=== PATIENT | male | born 1940 | race Caucasian/White ===

== ENCOUNTER 2019-04-07 07:41 | Day surgery (SDC) | payer OTHER, MEDICARE ==
[2019-04-06 15:43] VITALS: BMI 33.0
[2019-04-07 08:28] LABS: #Basophils 0.1 thou/uL (0.0-0.2); #Eosinphils 0.2 thou/uL (0.0-0.7); #Lymphocytes 1.9 thou/uL (1.20-3.40); #Monocytes 0.6 thou/uL (0.11-0.59); #Neutrophils 3.8 thou/uL (1.40-6.50); %Basophils 1.1 % (0.0-1.0); %Eosinophils 2.9 % (0.0-10.0); %Lymphocytes 28.4 % (21.0-51.0); %Monocytes 9.3 % (0.0-10.0); %Neutrophils 58.2 % (42.0-75.0); Hemoglobin 15.8 g/dL (14.0-18.0); Mean Corpuscular HGB CONC 32.9 g/dL (32.0-36.0); Mean Corpuscular Hemoglobin 31.7 pg (27.0-31.0); Mean Corpuscular Volume 96.2 fL (78.0-98.0); Mean Platelet Volume 8.7 fL (7.4-10.4); Platelet Count 259 thou/uL (130-400); RBC Distribution Width 12.3 % (11.5-14.5); White Blood Cell (WBC) Count 6.5 thou/uL (4.8-10.8)
[2019-04-07 08:34] LABS: INR-International Normal Ratio 1.1; PTT 31.6 SEC (22.9-36.1); Prothrombin Time 13.8 SEC (12.0-14.7)
[2019-04-07 08:54] LABS: Cardiac Risk 3.9 (Less than 4.5)
[2019-04-07] MEDS ORDERED: Lidocaine 1% (PF) 30 ML VIAL ONE (09:43)
[2019-04-07] MEDS ORDERED: Verapamil 5 MG/2 ML VIAL ONE (09:56)
[2019-04-07] MEDS ORDERED: Nitroglycerin 100MG/250ML BOT 250 ML ONE (09:56)
[2019-04-07] MEDS ORDERED: Heparin 10,000 UNITS/1 ML VIAL ONE (09:58)
[2019-04-07] MEDS ORDERED: Midazolam HCl 2 mg/2 ml Vial ONE (09:58)
[2019-04-07] MEDS ORDERED: Fentanyl 100 MCG/2 ML VIAL ONE (09:58)
[2019-04-07] MEDS ORDERED: Iopamidol 370 76% 50 ML VIAL FS ONE (15:47)
[2019-04-07] MEDS ORDERED: Iopamidol 370 76% 100 ML VIAL ONE (15:47)
== END 2019-04-07 14:31 ==
LOC: CCL 07:41
PROVIDERS: ATTEND Internal Medicine Cardiovascular Disease
PROC: 4A023N7 Measurement of Cardiac Sampling and Pressure, Left Heart, Percutaneous Approach (ICD-10-PCS; principal; 2019-04-07)
PROC: B2111ZZ Fluoroscopy of Multiple Coronary Arteries using Low Osmolar Contrast (ICD-10-PCS; principal; 2019-04-07)
PROC: B3101ZZ Fluoroscopy of Thoracic Aorta using Low Osmolar Contrast (ICD-10-PCS; principal; 2019-04-07)
DX: I25.10 Atherosclerotic heart disease of native coronary artery without angina pectoris (principal); I77.810 Thoracic aortic ectasia; I35.1 Nonrheumatic aortic (valve) insufficiency; E78.00 Pure hypercholesterolemia, unspecified; I10 Essential (primary) hypertension; E11.9 Type 2 diabetes mellitus without complications; E78.5 Hyperlipidemia, unspecified; Z87.891 Personal history of nicotine dependence; Z79.82 Long term (current) use of aspirin; Z79.899 Other long term (current) drug therapy; Z79.84 Long term (current) use of oral hypoglycemic drugs
CPT/HCPCS: 36415; 80061; 85025; 85610; 85730; 93458; 93567; 99152; 99153; C1769; J1644; J2001; J2250; J3010; Q9967

== ENCOUNTER 2021-06-06 10:26 | Outpatient (CLI) | payer MEDICARE ==
[2021-06-06] MEDS ORDERED: Iopamidol 370 76% 100 ML VIAL ONE (11:23)
== END 2021-06-06 10:27 | disposition home or self-care (01) ==
LOC: CT 10:26
PROVIDERS: ATTEND Family Medicine
DX: D36.9 Benign neoplasm, unspecified site (principal); K86.89 Other specified diseases of pancreas; K86.2 Cyst of pancreas; R10.9 Unspecified abdominal pain; I77.810 Thoracic aortic ectasia; I25.10 Atherosclerotic heart disease of native coronary artery without angina pectoris; K21.9 Gastro-esophageal reflux disease without esophagitis; L03.031 Cellulitis of right toe; I73.9 Peripheral vascular disease, unspecified
CPT/HCPCS: 74170; 82565; 99214; G0463; Q9967

== ENCOUNTER 2023-06-09 13:09 | Outpatient (CLI) | payer MEDICARE | END 2023-06-09 13:10 | disposition home or self-care (01) | LOC: MRI 13:09 | PROVIDERS: ATTEND Nurse Practitioner Family | DX: G95.20 Unspecified cord compression (principal); R42 Dizziness and giddiness; M47.812 Spondylosis without myelopathy or radiculopathy, cervical region; M48.02 Spinal stenosis, cervical region; G93.9 Disorder of brain, unspecified | CPT/HCPCS: 70551; 72141 ==

== ENCOUNTER 2024-03-23 13:36 | Outpatient (CLI) | payer MEDICARE | END 2024-03-23 13:37 | disposition home or self-care (01) | LOC: RAD 13:36 | PROVIDERS: ATTEND Internal Medicine Critical Care Medicine | DX: R06.00 Dyspnea, unspecified (principal); I51.7 Cardiomegaly | CPT/HCPCS: 71046 ==

== ENCOUNTER 2025-06-08 18:18 | Inpatient (IN) | payer MEDICARE ==
[2025-06-08] MEDS ORDERED: hydrALAZINE 20 MG/ML VIAL SLOW IVP PRN (19:15)
[2025-06-08 19:25] LABS: #Basophils 0.09 10x3/uL (0.0-0.2); #Eosinophils 0.15 10x3/uL (0.0-0.7); #Monocytes 0.66 10x3/uL (0.11-0.59); #Neutrophils 4.55 10x3/uL (1.40-6.50); %Basophils 1.3 % (0.0-1.0); %Eosinophils 2.1 % (0.0-10.0); %Lymphocytes 22.1 % (21.0-51.0); %Monocytes 9.4 % (0.0-10.0); %Neutrophils 64.5 % (42.0-75.0); Hematocrit 44.7 % (42.0-52.0); Hemoglobin 15.0 g/dL (14.0-18.0); Mean Corpuscular Hemoglobin 31.9 pg (27.0-31.0); Mean Corpuscular Volume 95.1 fL (78.0-98.0); Platelet Count 227 10x3/uL (130-400); Red Blood Cell (RBC) Count 4.70 mill/uL (4.70-6.10); White Blood Cell (WBC) Count 7.05 10x3/uL (4.8-10.8)
[2025-06-08 19:33] LABS: ALT (SGPT) 22 U/L (Less than 45); AST (SGOT) 32 U/L (11-34); Albumin 3.7 g/dL (3.1-4.5); Alkaline Phosphatase 95 U/L (40-110); Anion Gap 15 mmol/L (10-20); BUN (Urea Nitrogen) 16 mg/dL (8.4-25.7); Bilirubin, Total 1.2 mg/dL (0.3-1.2); Calc. Creatinine Clearance 0 mL/min (70-130); Calcium 9.5 mg/dL (7.8-10.44); Carbon Dioxide 26 mmol/L (23-31); Chloride 106 mmol/L (98-107); Globulin 3.2 g/dL (2.4-3.5); Glucose 118 mg/dL (83-110); Potassium 3.3 mmol/L (3.5-5.1); Sodium 144 mmol/L (136-145)
[2025-06-08] MEDS ORDERED: Bacitracin 1 PK ONE (19:36)
[2025-06-08] MEDS ORDERED: Ondansetron PF 4 MG/2 ML Vial IVP PRN (19:40)
[2025-06-08] MEDS ORDERED: Dextrose 50% Abboject 50 ML SYRINGE SLOW IVP PRN (19:40)
[2025-06-08] MEDS ORDERED: Glucagon 1 MG/ML KIT IM PRN (19:40)
[2025-06-08 20:13] LABS: INR-International Normal Ratio 2.4; Prothrombin Time 26.6 sec (12.0-14.7)
[2025-06-08 20:14] LABS: PTT 43.0 sec (22.9-36.1)
[2025-06-08 23:34] VITALS: BMI 29.0
[2025-06-09] MEDS: Acetaminophen 325 MG TAB PO PRN (00:05)
[2025-06-09 03:47] LABS: #Basophils 0.10 10x3/uL (0.0-0.2); #Eosinophils 0.09 10x3/uL (0.0-0.7); #Monocytes 0.71 10x3/uL (0.11-0.59); #Neutrophils 4.98 10x3/uL (1.40-6.50); %Basophils 1.3 % (0.0-1.0); %Eosinophils 1.2 % (0.0-10.0); %Lymphocytes 22.4 % (21.0-51.0); %Monocytes 9.3 % (0.0-10.0); %Neutrophils 65.3 % (42.0-75.0); Hematocrit 43.5 % (42.0-52.0); Hemoglobin 14.3 g/dL (14.0-18.0); Mean Corpuscular Hemoglobin 31.8 pg (27.0-31.0); Mean Corpuscular Volume 96.9 fL (78.0-98.0); Platelet Count 210 10x3/uL (130-400); Red Blood Cell (RBC) Count 4.49 mill/uL (4.70-6.10); White Blood Cell (WBC) Count 7.63 10x3/uL (4.8-10.8)
[2025-06-09 04:01] LABS: Anion Gap 11 mmol/L (10-20); BUN (Urea Nitrogen) 18 mg/dL (8.4-25.7); Calc. Creatinine Clearance 67 mL/min (70-130); Calcium 9.1 mg/dL (7.8-10.44); Carbon Dioxide 26 mmol/L (23-31); Chloride 108 mmol/L (98-107); Glucose 139 mg/dL (83-110); Potassium 3.2 mmol/L (3.5-5.1); Sodium 142 mmol/L (136-145)
[2025-06-09] MEDS ORDERED: Electrolyte Replacement Protocol 1 EACH FS PRN (04:56)
[2025-06-09] MEDS: Potassium Chloride 20 MEQ in Premix 1 BAG IVPB SCH (06:13)
[2025-06-09 09:09] LABS: INR-International Normal Ratio 1.9; Prothrombin Time 21.9 sec (12.0-14.7)
[2025-06-09 09:10] LABS: PTT 45.7 sec (22.9-36.1)
[2025-06-09] MEDS ORDERED: Iopamidol-370 76% 500 ML MDV (1 ML CHARGE) ONE (12:12)
[2025-06-09] MEDS: Pantoprazole 40 MG VIAL IVP SCH (13:19)
[2025-06-09] MEDS: Scopolamine 1 mg/72 hour Patch TOP SCH (22:50)
[2025-06-10 05:16] LABS: #Basophils 0.08 10x3/uL (0.0-0.2); #Eosinophils 0.12 10x3/uL (0.0-0.7); #Monocytes 0.67 10x3/uL (0.11-0.59); #Neutrophils 4.39 10x3/uL (1.40-6.50); %Basophils 1.2 % (0.0-1.0); %Eosinophils 1.8 % (0.0-10.0); %Lymphocytes 21.1 % (21.0-51.0); %Monocytes 10.0 % (0.0-10.0); %Neutrophils 65.6 % (42.0-75.0); Hematocrit 42.9 % (42.0-52.0); Hemoglobin 14.1 g/dL (14.0-18.0); Mean Corpuscular Hemoglobin 31.9 pg (27.0-31.0); Mean Corpuscular Volume 97.1 fL (78.0-98.0); Platelet Count 200 10x3/uL (130-400); Red Blood Cell (RBC) Count 4.42 mill/uL (4.70-6.10); White Blood Cell (WBC) Count 6.69 10x3/uL (4.8-10.8)
[2025-06-10 05:31] LABS: Anion Gap 11 mmol/L (10-20); BUN (Urea Nitrogen) 14 mg/dL (8.4-25.7); Calc. Creatinine Clearance 79 mL/min (70-130); Calcium 8.4 mg/dL (7.8-10.44); Carbon Dioxide 23 mmol/L (23-31); Chloride 108 mmol/L (98-107); Glucose 126 mg/dL (83-110); Potassium 3.5 mmol/L (3.5-5.1); Sodium 138 mmol/L (136-145)
[2025-06-10] MEDS: Losartan 25 MG TAB PO SCH (08:48)
[2025-06-10] MEDS: Metoprolol Succinate XL 100 MG ER.TAB PO SCH (08:48)
[2025-06-10] MEDS: Pantoprazole 40 MG VIAL IVP SCH (08:49)
[2025-06-10] MEDS: Lactulose 20 GM (30 mL) UDCUP PO SCH (10:45)
[2025-06-10 14:35] LABS: Bacteria/HPF 4+ HPF (None Seen); CAUTI Indications for Culture Alt mental st,lethar; Glucose, Urine (Dipstick) >=1000 mg/dL (Negative); Leukocyte 500 Leu/uL (Negative); Protein, Urine (Dipstick) 10 mg/dL (Neg-Trace); RBC/HPF Greater than 50 HPF (0-3); Specific Gravity, Urine 1.029 (1.002-1.036); WBC/HPF Greater than 50 HPF (0-3)
[2025-06-10 14:54] LABS: Yeast-Budding Rare HPF (None Seen)
[2025-06-10 14:56] LABS: Urine Culture Reflex Yes Yes
[2025-06-10] MEDS: cefTRIAXone (ROCEPHIN) 2 GM VIAL ONE (15:50)
[2025-06-10] MEDS: cefTRIAXone\\ROCEPHIN 2 GM in Sodium Chloride 0.9% 100 ML IVPB SCH (15:58)
[2025-06-10] MEDS: Furosemide 40 MG (4 mL) VIAL SLOW IVP SCH (21:31)
[2025-06-11 05:34] LABS: #Basophils 0.09 10x3/uL (0.0-0.2); #Eosinophils 0.04 10x3/uL (0.0-0.7); #Monocytes 0.91 10x3/uL (0.11-0.59); #Neutrophils 6.46 10x3/uL (1.40-6.50); %Basophils 1.0 % (0.0-1.0); %Eosinophils 0.4 % (0.0-10.0); %Lymphocytes 15.1 % (21.0-51.0); %Monocytes 10.2 % (0.0-10.0); %Neutrophils 72.7 % (42.0-75.0); Hematocrit 46.2 % (42.0-52.0); Hemoglobin 15.5 g/dL (14.0-18.0); Mean Corpuscular Hemoglobin 31.8 pg (27.0-31.0); Mean Corpuscular Volume 94.7 fL (78.0-98.0); Platelet Count 206 10x3/uL (130-400); Red Blood Cell (RBC) Count 4.88 mill/uL (4.70-6.10); White Blood Cell (WBC) Count 8.89 10x3/uL (4.8-10.8)
[2025-06-11 05:51] LABS: Anion Gap 12 mmol/L (10-20); BUN (Urea Nitrogen) 14 mg/dL (8.4-25.7); Calc. Creatinine Clearance 78 mL/min (70-130); Calcium 8.9 mg/dL (7.8-10.44); Carbon Dioxide 26 mmol/L (23-31); Chloride 102 mmol/L (98-107); Glucose 163 mg/dL (83-110); Potassium 3.4 mmol/L (3.5-5.1); Sodium 137 mmol/L (136-145)
[2025-06-11] MEDS: Ciprofloxacin 500 MG TAB PO SCH ×2 (10:10→20:32)
[2025-06-12 08:00] VITALS: TEMP 97.9
[2025-06-12 13:19] VITALS: BP 128/75
== END 2025-06-12 13:17 | DRG 83 ==
LOC: ERS 18:18 → ERHOLD 19:37 → IMCU/EMU 23:00 → SURG A 06-09 13:57
PROVIDERS: ADMIT Surgery; ATTEND Surgery
DX: S06.5XAA Traumatic subdural hemorrhage with loss of consciousness status unknown, initial encounter (principal); G96.00 Cerebrospinal fluid leak, unspecified; S01.01XA Laceration without foreign body of scalp, initial encounter; I10 Essential (primary) hypertension; E78.5 Hyperlipidemia, unspecified; I48.0 Paroxysmal atrial fibrillation; R40.2362 Coma scale, best motor response, obeys commands, at arrival to emergency department; R40.2142 Coma scale, eyes open, spontaneous, at arrival to emergency department; R40.2252 Coma scale, best verbal response, oriented, at arrival to emergency department; Z79.899 Other long term (current) drug therapy; S06.6XAA Traumatic subarachnoid hemorrhage with loss of consciousness status unknown, initial encounter; W01.198A Fall on same level from slipping, tripping and stumbling with subsequent striking against other object, initial encounter
CPT/HCPCS: 12013; 36415; 36416; 70450; 70496; 70498; 71045; 72125; 76770; 80048; 80053; 81001; 83880; 84484; 85025; 85610; 85730; 87077; 87086; 87186; G0390; J0696; J1630; J1940; J2060; J2470; J3480; J7030; Q9967

== ENCOUNTER 2025-06-25 21:43 | Inpatient (IN) | payer MEDICARE ==
[2025-06-25] MEDS ORDERED: hydrALAZINE 20 MG/ML VIAL SLOW IVP PRN (23:34)
[2025-06-25] MEDS ORDERED: levETIRAcetam 500 MG (5 mL) VIAL ONE (23:36)
[2025-06-26] MEDS ORDERED: Acetaminophen 325 MG TAB PO PRN (01:03)
[2025-06-26] MEDS ORDERED: Ondansetron PF 4 MG/2 ML Vial IVP PRN (01:03)
[2025-06-26] MEDS ORDERED: Glucagon 1 MG/ML KIT IM PRN (01:03)
[2025-06-26] MEDS ORDERED: Dextrose 50% Abboject 50 ML SYRINGE SLOW IVP PRN (01:03)
[2025-06-26 02:00] VITALS: BMI 32.4
[2025-06-26 04:06] LABS: #Basophils 0.14 10x3/uL (0.0-0.2); #Eosinophils 0.25 10x3/uL (0.0-0.7); #Monocytes 0.82 10x3/uL (0.11-0.59); #Neutrophils 4.82 10x3/uL (1.40-6.50); %Basophils 1.6 % (0.0-1.0); %Eosinophils 2.9 % (0.0-10.0); %Lymphocytes 28.5 % (21.0-51.0); %Monocytes 9.7 % (0.0-10.0); %Neutrophils 56.8 % (42.0-75.0); Hematocrit 46.3 % (42.0-52.0); Hemoglobin 15.0 g/dL (14.0-18.0); Mean Corpuscular Hemoglobin 31.7 pg (27.0-31.0); Mean Corpuscular Volume 97.9 fL (78.0-98.0); Platelet Count 210 10x3/uL (130-400); Red Blood Cell (RBC) Count 4.73 mill/uL (4.70-6.10); White Blood Cell (WBC) Count 8.49 10x3/uL (4.8-10.8)
[2025-06-26 04:22] LABS: Anion Gap 15 mmol/L (10-20); BUN (Urea Nitrogen) 18 mg/dL (8.4-25.7); Calc. Creatinine Clearance 80 mL/min (70-130); Calcium 8.9 mg/dL (7.8-10.44); Carbon Dioxide 21 mmol/L (23-31); Chloride 104 mmol/L (98-107); Glucose 159 mg/dL (83-110); Potassium 4.0 mmol/L (3.5-5.1); Sodium 136 mmol/L (136-145)
[2025-06-26 06:43] LABS: Bacteria/HPF None Seen HPF (None Seen); CAUTI Indications for Culture Alt mental st,lethar; Glucose, Urine (Dipstick) Normal (Negative); Leukocyte Negative Leu/uL (Negative); Protein, Urine (Dipstick) Negative (Neg-Trace); Specific Gravity, Urine 1.021 (1.002-1.036); WBC/HPF 0-3 HPF (0-3)
[2025-06-26 06:47] LABS: Urine Culture Reflex No No
[2025-06-26] MEDS: Pantoprazole 40 MG VIAL IVP SCH (10:10)
[2025-06-26] MEDS: levETIRAcetam 500 MG (5 mL) VIAL SLOW IVP SCH (10:10)
[2025-06-26] MEDS: PNEUMOC 20-VAL CONJ-DIP CRM/PF 0.5 ML SYRINGE IM ONE (10:10)
[2025-06-27 03:52] LABS: #Basophils 0.11 10x3/uL (0.0-0.2); #Eosinophils 0.21 10x3/uL (0.0-0.7); #Monocytes 0.60 10x3/uL (0.11-0.59); #Neutrophils 4.18 10x3/uL (1.40-6.50); %Basophils 1.6 % (0.0-1.0); %Eosinophils 3.0 % (0.0-10.0); %Lymphocytes 26.7 % (21.0-51.0); %Monocytes 8.6 % (0.0-10.0); %Neutrophils 59.7 % (42.0-75.0); Hematocrit 43.6 % (42.0-52.0); Hemoglobin 14.5 g/dL (14.0-18.0); Mean Corpuscular Hemoglobin 31.8 pg (27.0-31.0); Mean Corpuscular Volume 95.6 fL (78.0-98.0); Platelet Count 218 10x3/uL (130-400); Red Blood Cell (RBC) Count 4.56 mill/uL (4.70-6.10); White Blood Cell (WBC) Count 7.00 10x3/uL (4.8-10.8)
[2025-06-27 04:07] LABS: Anion Gap 11 mmol/L (10-20); BUN (Urea Nitrogen) 14 mg/dL (8.4-25.7); Calc. Creatinine Clearance 72 mL/min (70-130); Calcium 8.6 mg/dL (7.8-10.44); Carbon Dioxide 23 mmol/L (23-31); Chloride 109 mmol/L (98-107); Glucose 140 mg/dL (83-110); Potassium 3.7 mmol/L (3.5-5.1); Sodium 139 mmol/L (136-145)
[2025-06-27 09:33] LABS: INR-International Normal Ratio 1.2; PTT 35.2 sec (22.9-36.1); Prothrombin Time 15.5 sec (12.0-14.7)
[2025-06-28 04:22] LABS: #Basophils 0.10 10x3/uL (0.0-0.2); #Eosinophils 0.19 10x3/uL (0.0-0.7); #Monocytes 0.64 10x3/uL (0.11-0.59); #Neutrophils 4.54 10x3/uL (1.40-6.50); %Basophils 1.4 % (0.0-1.0); %Eosinophils 2.6 % (0.0-10.0); %Lymphocytes 25.7 % (21.0-51.0); %Monocytes 8.6 % (0.0-10.0); %Neutrophils 61.3 % (42.0-75.0); Hematocrit 43.3 % (42.0-52.0); Hemoglobin 14.5 g/dL (14.0-18.0); Mean Corpuscular Hemoglobin 31.9 pg (27.0-31.0); Mean Corpuscular Volume 95.2 fL (78.0-98.0); Platelet Count 199 10x3/uL (130-400); Red Blood Cell (RBC) Count 4.55 mill/uL (4.70-6.10); White Blood Cell (WBC) Count 7.40 10x3/uL (4.8-10.8)
[2025-06-28 04:38] LABS: Anion Gap 13 mmol/L (10-20); BUN (Urea Nitrogen) 12 mg/dL (8.4-25.7); Calc. Creatinine Clearance 77 mL/min (70-130); Calcium 8.6 mg/dL (7.8-10.44); Carbon Dioxide 22 mmol/L (23-31); Chloride 109 mmol/L (98-107); Glucose 130 mg/dL (83-110); Potassium 3.6 mmol/L (3.5-5.1); Sodium 140 mmol/L (136-145)
[2025-06-29 03:54] LABS: #Basophils 0.09 10x3/uL (0.0-0.2); #Eosinophils 0.20 10x3/uL (0.0-0.7); #Monocytes 0.66 10x3/uL (0.11-0.59); #Neutrophils 4.35 10x3/uL (1.40-6.50); %Basophils 1.3 % (0.0-1.0); %Eosinophils 2.9 % (0.0-10.0); %Lymphocytes 23.3 % (21.0-51.0); %Monocytes 9.5 % (0.0-10.0); %Neutrophils 62.6 % (42.0-75.0); Hematocrit 42.9 % (42.0-52.0); Hemoglobin 14.3 g/dL (14.0-18.0); Mean Corpuscular Hemoglobin 32.0 pg (27.0-31.0); Mean Corpuscular Volume 96.0 fL (78.0-98.0); Platelet Count 195 10x3/uL (130-400); Red Blood Cell (RBC) Count 4.47 mill/uL (4.70-6.10); White Blood Cell (WBC) Count 6.95 10x3/uL (4.8-10.8)
[2025-06-29 04:20] LABS: Anion Gap 12 mmol/L (10-20); BUN (Urea Nitrogen) 11 mg/dL (8.4-25.7); Calc. Creatinine Clearance 78 mL/min (70-130); Calcium 8.8 mg/dL (7.8-10.44); Carbon Dioxide 21 mmol/L (23-31); Chloride 112 mmol/L (98-107); Glucose 140 mg/dL (83-110); Potassium 4.5 mmol/L (3.5-5.1); Sodium 140 mmol/L (136-145)
[2025-06-29] MEDS ORDERED: CEFAZOLIN 2 GM VIAL ONE (10:53)
[2025-06-29] MEDS ORDERED: Bacitracin Zinc Ointment 30 gm TUBE ONE (11:09)
[2025-06-29] MEDS ORDERED: Thrombin 5000 UNITS/5 ML VIAL ONE (11:09)
[2025-06-29] MEDS ORDERED: Lidocaine 1% w/Epinephrine 1:100K 20 ML VIAL ONE (11:10)
[2025-06-29] MEDS ORDERED: fentaNYL PF 100 MCG/2 ML SYRINGE ONE (11:49)
[2025-06-29] MEDS ORDERED: PROPOFOL 20 ML ONE (11:49)
[2025-06-29] MEDS ORDERED: Lidocaine 1% PF 5 ML VIAL ONE (11:49)
[2025-06-29] MEDS ORDERED: Rocuronium Bromide 10 MG/ML (10ML VIAL) ONE (11:49)
[2025-06-29] MEDS ORDERED: Ondansetron PF 4 MG/2 ML Vial ONE (12:36)
[2025-06-29] MEDS ORDERED: PHENYLEPHRINE-NS 100 MCG/ML 10 ML SYRINGE ONE (12:45)
[2025-06-29] MEDS ORDERED: SUGAMMADEX SODIUM 200 MG/2 ML VIAL ONE (13:11)
[2025-06-29] MEDS ORDERED: MINERAL OIL/WHITE PETROLATUM 3.5 GM TUBE ONE (13:15)
[2025-06-29] MEDS: Acetaminophen/Codeine 30-300mg Tablet PO PRN (20:51)
[2025-06-29] MEDS: levETIRAcetam 500 MG TAB PO SCH (20:51)
[2025-06-30 03:21] LABS: #Basophils Less than 0.03 10x3/uL (0.0-0.2); #Eosinophils Less than 0.03 10x3/uL (0.0-0.7); #Monocytes 0.25 10x3/uL (0.11-0.59); #Neutrophils 7.86 10x3/uL (1.40-6.50); %Basophils 0.1 % (0.0-1.0); %Eosinophils 0.0 % (0.0-10.0); %Lymphocytes 7.3 % (21.0-51.0); %Monocytes 2.8 % (0.0-10.0); %Neutrophils 89.1 % (42.0-75.0); Hematocrit 46.7 % (42.0-52.0); Hemoglobin 15.5 g/dL (14.0-18.0); Mean Corpuscular Hemoglobin 31.8 pg (27.0-31.0); Mean Corpuscular Volume 95.7 fL (78.0-98.0); Platelet Count 204 10x3/uL (130-400); Red Blood Cell (RBC) Count 4.88 mill/uL (4.70-6.10); White Blood Cell (WBC) Count 8.82 10x3/uL (4.8-10.8)
[2025-06-30 03:47] LABS: Anion Gap 13 mmol/L (10-20); BUN (Urea Nitrogen) 13 mg/dL (8.4-25.7); Calc. Creatinine Clearance 73 mL/min (70-130); Calcium 8.9 mg/dL (7.8-10.44); Carbon Dioxide 23 mmol/L (23-31); Chloride 108 mmol/L (98-107); Glucose 191 mg/dL (83-110); Potassium 4.5 mmol/L (3.5-5.1); Sodium 139 mmol/L (136-145)
[2025-06-30] MEDS: Pantoprazole 40 MG DR.TAB PO SCH (08:46)
[2025-06-30] MEDS: Acetaminophen 325 MG TAB PO PRN (20:53)
[2025-07-01 04:46] LABS: #Basophils 0.03 10x3/uL (0.0-0.2); #Eosinophils Less than 0.03 10x3/uL (0.0-0.7); #Monocytes 0.83 10x3/uL (0.11-0.59); #Neutrophils 10.03 10x3/uL (1.40-6.50); %Basophils 0.2 % (0.0-1.0); %Eosinophils 0.2 % (0.0-10.0); %Lymphocytes 9.5 % (21.0-51.0); %Monocytes 6.8 % (0.0-10.0); %Neutrophils 82.8 % (42.0-75.0); Hematocrit 42.6 % (42.0-52.0); Hemoglobin 14.0 g/dL (14.0-18.0); Mean Corpuscular Hemoglobin 31.6 pg (27.0-31.0); Mean Corpuscular Volume 96.2 fL (78.0-98.0); Platelet Count 190 10x3/uL (130-400); Red Blood Cell (RBC) Count 4.43 mill/uL (4.70-6.10); White Blood Cell (WBC) Count 12.12 10x3/uL (4.8-10.8)
[2025-07-01 05:09] LABS: Anion Gap 13 mmol/L (10-20); BUN (Urea Nitrogen) 13 mg/dL (8.4-25.7); Calc. Creatinine Clearance 97 mL/min (70-130); Calcium 8.7 mg/dL (7.8-10.44); Carbon Dioxide 22 mmol/L (23-31); Chloride 107 mmol/L (98-107); Glucose 163 mg/dL (83-110); Potassium 4.0 mmol/L (3.5-5.1); Sodium 138 mmol/L (136-145)
[2025-07-02 04:08] LABS: #Basophils 0.04 10x3/uL (0.0-0.2); #Eosinophils 0.21 10x3/uL (0.0-0.7); #Monocytes 1.01 10x3/uL (0.11-0.59); #Neutrophils 6.98 10x3/uL (1.40-6.50); %Basophils 0.4 % (0.0-1.0); %Eosinophils 2.1 % (0.0-10.0); %Lymphocytes 16.2 % (21.0-51.0); %Monocytes 10.2 % (0.0-10.0); %Neutrophils 70.6 % (42.0-75.0); Hematocrit 43.2 % (42.0-52.0); Hemoglobin 14.2 g/dL (14.0-18.0); Mean Corpuscular Hemoglobin 31.2 pg (27.0-31.0); Mean Corpuscular Volume 94.9 fL (78.0-98.0); Platelet Count 159 10x3/uL (130-400); Red Blood Cell (RBC) Count 4.55 mill/uL (4.70-6.10); White Blood Cell (WBC) Count 9.89 10x3/uL (4.8-10.8)
[2025-07-02 04:25] LABS: Anion Gap 13 mmol/L (10-20); BUN (Urea Nitrogen) 13 mg/dL (8.4-25.7); Calc. Creatinine Clearance 99 mL/min (70-130); Calcium 8.5 mg/dL (7.8-10.44); Carbon Dioxide 23 mmol/L (23-31); Chloride 107 mmol/L (98-107); Glucose 139 mg/dL (83-110); Potassium 4.0 mmol/L (3.5-5.1); Sodium 139 mmol/L (136-145)
[2025-07-02 12:53] VITALS: BMI 34.0
[2025-07-02] MEDS: Benzocaine/Menthol 1 LOZ LOZ PO PRN (21:16)
[2025-07-03 03:27] LABS: #Basophils 0.05 10x3/uL (0.0-0.2); #Eosinophils 0.19 10x3/uL (0.0-0.7); #Monocytes 0.79 10x3/uL (0.11-0.59); #Neutrophils 6.35 10x3/uL (1.40-6.50); %Basophils 0.6 % (0.0-1.0); %Eosinophils 2.2 % (0.0-10.0); %Lymphocytes 14.4 % (21.0-51.0); %Monocytes 9.1 % (0.0-10.0); %Neutrophils 73.1 % (42.0-75.0); Hematocrit 42.6 % (42.0-52.0); Hemoglobin 14.0 g/dL (14.0-18.0); Mean Corpuscular Hemoglobin 31.3 pg (27.0-31.0); Mean Corpuscular Volume 95.1 fL (78.0-98.0); Platelet Count 162 10x3/uL (130-400); Red Blood Cell (RBC) Count 4.48 mill/uL (4.70-6.10); White Blood Cell (WBC) Count 8.68 10x3/uL (4.8-10.8)
[2025-07-03 03:49] LABS: Anion Gap 14 mmol/L (10-20); BUN (Urea Nitrogen) 7 mg/dL (8.4-25.7); Calc. Creatinine Clearance 112 mL/min (70-130); Calcium 8.3 mg/dL (7.8-10.44); Carbon Dioxide 22 mmol/L (23-31); Chloride 104 mmol/L (98-107); Glucose 151 mg/dL (83-110); Potassium 3.5 mmol/L (3.5-5.1); Sodium 136 mmol/L (136-145)
[2025-07-03] MEDS: hydrALAZINE 20 MG/ML VIAL SLOW IVP PRN (09:04)
[2025-07-03 14:51] VITALS: BP 164/76; TEMP 98.3
== END 2025-07-03 14:59 | DRG 25 ==
LOC: ERS 21:43 → PCU 06-26 01:03 → 2SE 06-28 18:36 → CCU 06-29 15:09 → IMCU/EMU 06-29 16:12 → 2SE 06-30 14:13
PROVIDERS: ADMIT Surgery Trauma Surgery; ATTEND Surgery Trauma Surgery
PROC: 3E0234Z Introduction of Serum, Toxoid and Vaccine into Muscle, Percutaneous Approach (ICD-10-PCS; 2025-06-26)
PROC: 00C73ZZ Extirpation of Matter from Cerebral Hemisphere, Percutaneous Approach (ICD-10-PCS; principal; 2025-06-29)
PROC: 3E03329 Introduction of Other Anti-infective into Peripheral Vein, Percutaneous Approach (ICD-10-PCS; 2025-06-29)
DX: S06.5X0A Traumatic subdural hemorrhage without loss of consciousness, initial encounter (principal); G93.5 Compression of brain; G95.9 Disease of spinal cord, unspecified; R47.01 Aphasia; I10 Essential (primary) hypertension; I48.91 Unspecified atrial fibrillation; W19.XXXA Unspecified fall, initial encounter; E78.5 Hyperlipidemia, unspecified; E11.9 Type 2 diabetes mellitus without complications; Z79.899 Other long term (current) drug therapy; Z98.890 Other specified postprocedural states; Z87.891 Personal history of nicotine dependence; R27.0 Ataxia, unspecified; M48.02 Spinal stenosis, cervical region; M54.12 Radiculopathy, cervical region
CPT/HCPCS: 36415; 36416; 70450; 70553; 71045; 72141; 76376; 80048; 81001; 85025; 85610; 85730; 93005; 93010; 93880; 96365; J0360; J1100; J1815; J1953; J2470; J2704; J7030

== ENCOUNTER 2025-07-13 09:32 | Inpatient (IN) | payer MEDICARE ==
[2025-07-13] MEDS ORDERED: Bacitracin Zinc Ointment 30 gm TUBE ONE (11:06)
[2025-07-13] MEDS ORDERED: Lidocaine 1% w/Epinephrine 1:100K 20 ML VIAL ONE (11:06)
[2025-07-13] MEDS ORDERED: fentaNYL PF 100 MCG/2 ML SYRINGE ONE (11:15)
[2025-07-13] MEDS ORDERED: CEFAZOLIN 2 GM VIAL ONE (11:24)
[2025-07-13] MEDS ORDERED: PROPOFOL 20 ML ONE (11:32)
[2025-07-13] MEDS ORDERED: Lidocaine 1% PF 5 ML VIAL ONE (11:33)
[2025-07-13] MEDS ORDERED: Ondansetron PF 4 MG/2 ML Vial IVP PRN (12:18)
[2025-07-13] MEDS ORDERED: hydrALAZINE 20 MG/ML VIAL ONE (14:09)
[2025-07-13] MEDS: hydrALAZINE 20 MG/ML VIAL SLOW IVP PRN (17:17)
[2025-07-13] MEDS: Mupirocin 1 GM TUBE NASAL DECOLONIZATION NASAL SCH (19:11)
[2025-07-13] MEDS: levETIRAcetam 500 MG TAB PO SCH (19:11)
[2025-07-15 05:37] VITALS: BMI 29.0
[2025-07-17 19:59] VITALS: BP 154/86; TEMP 98
== END 2025-07-17 22:05 | DRG 25 ==
LOC: SDC 09:32 → CCU 12:21 → 2NO 07-16 21:43
PROVIDERS: ADMIT Neurological Surgery; ATTEND Neurological Surgery
PROC: 3E03329 Introduction of Other Anti-infective into Peripheral Vein, Percutaneous Approach (ICD-10-PCS; principal; 2025-07-13)
PROC: 009430Z Drainage of Intracranial Subdural Space with Drainage Device, Percutaneous Approach (ICD-10-PCS; 2025-07-13)
DX: S06.5X0A Traumatic subdural hemorrhage without loss of consciousness, initial encounter (principal); G93.41 Metabolic encephalopathy; F05 Delirium due to known physiological condition; M47.12 Other spondylosis with myelopathy, cervical region; R47.01 Aphasia; G81.90 Hemiplegia, unspecified affecting unspecified side; I48.91 Unspecified atrial fibrillation; I10 Essential (primary) hypertension; E78.5 Hyperlipidemia, unspecified; E11.9 Type 2 diabetes mellitus without complications; R29.810 Facial weakness; W18.30XA Fall on same level, unspecified, initial encounter; R26.89 Other abnormalities of gait and mobility; Z79.899 Other long term (current) drug therapy
CPT/HCPCS: 36416; 70450; J0360; J1815; J2704

== ENCOUNTER 2025-07-24 11:12 | Emergency (ER) | payer MEDICARE ==
[2025-07-24] MEDS ORDERED: Calcium Chloride 1 GM/10 ML Abboject SYRINGE ONE (11:16)
[2025-07-24] MEDS ORDERED: EPINEPHrine 1 MG/10 ML Abboject SYRINGE ONE ×3 (11:16→11:56)
[2025-07-24] MEDS ORDERED: Tenecteplase 50 MG ONE (11:16)
[2025-07-24] MEDS ORDERED: Sodium Bicarb 50 MEQ/50 ML Abboject 8.4% SYRINGE ONE (11:16)
[2025-07-24 11:37] LABS: #Basophils 0.07 10x3/uL (0.0-0.2); #Eosinophils 0.09 10x3/uL (0.0-0.7); #Monocytes 2.08 10x3/uL (0.11-0.59); #Neutrophils 9.84 10x3/uL (1.40-6.50); %Basophils 0.4 % (0.0-1.0); %Eosinophils 0.6 % (0.0-10.0); %Lymphocytes 23.5 % (21.0-51.0); %Monocytes 13.0 % (0.0-10.0); %Neutrophils 61.6 % (42.0-75.0); Hematocrit 47.0 % (42.0-52.0); Hemoglobin 14.6 g/dL (14.0-18.0); Mean Corpuscular Hemoglobin 30.5 pg (27.0-31.0); Mean Corpuscular Volume 98.1 fL (78.0-98.0); Platelet Count 156 10x3/uL (130-400); Red Blood Cell (RBC) Count 4.79 mill/uL (4.70-6.10); White Blood Cell (WBC) Count 15.98 10x3/uL (4.8-10.8)
[2025-07-24 11:50] LABS: INR-International Normal Ratio 1.6; Prothrombin Time 18.7 sec (12.0-14.7)
== END 2025-07-24 11:56 | disposition expired ==
LOC: ERS 11:12
DX: I26.99 Other pulmonary embolism without acute cor pulmonale (principal); E11.9 Type 2 diabetes mellitus without complications; I10 Essential (primary) hypertension; Z79.84 Long term (current) use of oral hypoglycemic drugs
CPT/HCPCS: 31500; 84484; 85025; 85610; 92950; 96374; 99285; J0165; J3101